=== PATIENT | male | born 1965 | race African-American/Black ===

== ENCOUNTER 2019-07-03 13:35 | Inpatient (IN) | payer OTHER ==
[2019-07-03 16:51] VITALS: PULSE 50; BMI 23.8
--- NOTE | 2019-07-03 17:50 | HP ---
CIWA Score - Admission Criteria [facility] Guidelines: Admission for Medically Managed Detox: Requires at least one of the followin. CIWA greater than 12 2. Seizures within the past 24 hours 3. Delirium tremens within the past 24 hours 4. Hallucinations within the past 24 hours 5. Acute intervention needed for co occurring medical disorder 6. Acute intervention needed for co occurring psychiatric disorder 7. Severe withdrawal that cannot be handled at a lower level of care (continued vomiting, continued diarrhea, abnormal vital signs) requiring intravenous medication and/or fluids 8. Admission ROS S - HPI Chief Complaint: Seeking admission to Rehab. Allergies/Adverse Reactions: Allergies Allergy/AdvReac Type Severity Reaction Status Date / Time No Known Allergies Allergy Verified 07/03/19 16:50 History of Present Illness: 53 years old male with a lonh history of cocaine and marijuana dependence is seeking admission to Rehab. Patient has been to previous Rehabilitation at [facility]. He is in a program at [facility] and is on Buprenorphine - naloxone 8-2mg sl film. He reports medical history of BPH and psychiatric history of depression. He is unemployed and lives with his family. His drug screen result was positive for Marijuana, cocaine and BUP. This is his first admission to [facility] Confidential Drug Utilization Report Search Terms: Carlos Valencia, 1965 Search Date: 07/03/2019 05:47:19 PM The Drug Utilization Report below displays all of the controlled substance prescriptions, if any, that your patient has filled in the last twelve months. The information displayed on this report is compiled from pharmacy submissions to the Department, and accurately reflects the information as submitted by the pharmacies. Others' Prescriptions Patient Name: Carlos Valencia Date: 1965 Address: [address] [place] [address] Sex: Male Rx Written Rx Dispensed Drug Quantity Days Supply Prescriber Name 06/30/2019 06/30/2019 buprenorphine-naloxone 8-2 mg sl film 30 15 Hamzah Sharma MD 06/16/2019 06/16/2019 buprenorphine-naloxone 8-2 mg sl film 30 15 Hmazah Sharma MD 06/02/2019 06/02/2019 buprenorphine-naloxone 8-2 mg sl film 30 15 Hamzah Sharma MD 05/19/2019 05/19/2019 buprenorphine-naloxone 8-2 mg sl film 30 15 Hamzah Sharma MD Patient Name: Carlos Valencia Date: 1965 Address: [address] [place] [address] Sex: Male Rx Written Rx Dispensed Drug Quantity Days Supply Prescriber Name 04/15/2019 04/15/2019 buprenorphine-naloxone 8-2 mg sl film 60 30 Mainor Fabian J, MD Exam Limitations: No Limitations - Ebola screening Have you traveled outside of the country in the last 21 days: No Have you had contact with anyone from an Ebola affected area: No Do you have a fever: No - Review of Systems Constitutional: No Symptoms Reported EENT: reports: No Symptoms Reported Respiratory: reports: No Symptoms reported Cardiac: reports: No Symptoms Reported GI: reports: No Symptoms Reported : reports: No Symptoms Reported Musculoskeletal: reports: No Symptoms Reported Integumentary: reports: No Symptoms Reported Neuro: reports: No Symptoms reported Endocrine: reports: No Symptoms Reported Hematology: reports: No Symptoms Reported Psychiatric: reports: No Sypmtoms Reported, Mood/Affect Appropiate, Orientated x3 Other Systems: Reviewed and Negative Patient History - Patient Medical History Hx Anemia: No Hx Asthma: No Hx Chronic Obstructive Pulmonary Disease (COPD): No Hx Cardiac Disorders: No Hx Congestive Heart Failure: No Hx Hypertension: No Hx Hypercholesterolemia: No HX Cerebrovascular Accident: No Hx Seizures: No Hx Dementia: No Hx Diabetes: No Hx Gastrointestinal Disorders: No Hx Liver Disease: No Hx Genitourinary Disorders: Yes (BPH) Hx Sexually Transmitted Disorders: No Hx Renal Disease (ESRD): No Hx Thyroid Disease: No Hx Human Immunodeficiency Virus (HIV): No (Nergative December 2018) Hx Hepatitis C: No Hx Suicide Attempt: No (Denies suicidal ideation at this time) Hx Bipolar Disorder: No Hx Schizophrenia: No - Patient Surgical History Past Surgical History: No - PPD History Previous Implant?: No Documented Results: Negative w/o proof Implanted On Prior [facility] Admission?: No PPD to be Administered?: Yes - Reproductive History Patient is a Female of Child Bearing Age (11 -55 yrs old): No (male) - Smoking Cessation Smoking history: Current every day smoker Have you smoked in the past 12 months: Yes Aproximately how many cigarettes per day: 20 Hx Chewing Tobacco Use: No Initiated information on smoking cessation: Yes 'Breaking Loose' booklet given: 07/03/19 - Substance & Tx. History Hx Alcohol Use: No Hx Substance Use: Yes Substance Use Type: Cocaine, Marijuana, Prescribed Hx Substance Use Treatment: Yes ([facility]) - Substances abused Heroin Other (specify): sniff Frequency: Daily Amount used: 3 bags Age of first use: 16 Date of last use: 11/25/18 Cocaine Substance route: Smoking Frequency: Daily Amount used: $30 Age of first use: 24 Date of last use: 07/01/19 Admission Physical Exam [facility] - Vital Signs Vital Signs: Vital Signs - 24 hr 07/03/19 16:43 Temperature 97.3 F L Pulse Rate 50 L Respiratory 18 Rate Blood Pressure 128/78 - Physical General Appearance: Yes: Within Normal Limits HEENTM: Yes: Within Normal Limits Respiratory: Yes: Lungs Clear, Normal Breath Sounds, No Respiratory Distress Neck: Yes: Within Normal Limits Breast: Yes: Breast Exam Deferred Abdominal: Yes: Normal Bowel Sounds, Soft Genitourinary: Yes: Within Normal Limits Back: Yes: Normal Inspection Musculoskeletal: Yes: Within Normal Limits Neurological: Yes: Alert, Motor Strength 5/5, Normal Mood/Affect, Normal Response Integumentary: Yes: Warm Lymphatic: Yes: Within Normal Limits - Diagnostic (1) Marijuana dependence Current Visit: Yes Status: Chronic (2) Cocaine dependence Current Visit: Yes Status: Chronic Qualifiers: Substance use status: uncomplicated Qualified Code(s): F14.20 - Cocaine dependence, uncomplicated (3) Opioid dependence Current Visit: Yes Status: Chronic Qualifiers: Complication of substance-induced condition: uncomplicated (4) Encounter for monitoring Suboxone maintenance therapy Current Visit: Yes Status: Chronic (5) Nicotine dependence Current Visit: Yes Status: Chronic Qualifiers: Nicotine product type: cigarettes Substance use status: uncomplicated Qualified Code(s): F17.210 - Nicotine dependence, cigarettes, uncomplicated (6) BPH (benign prostatic hyperplasia) Current Visit: Yes Status: Chronic Qualifiers: Lower urinary tract symptom detail: unspecified (7) Depression Current Visit: Yes Status: Chronic Qualifiers: Depression Type: unspecified Qualified Code(s): F32.9 - Major depressive disorder, single episode, unspecified Cleared for Admission [facility] - Detox or Rehab [facility] Level of Care: Observation Bed Claeared for Rehab Admission: Yes Breathalyzer - Breathalyzer Breathalyzer: 0 Urine Drug Screen - Test Device Lot number: [id number] Expiration date: 02/05/21 - Control Is test valid?: Yes - Results Drug screen NEGATIVE: No Urine drug screen results: THC-Marijuana, PRICE-Cocaine, BUP-Suboxone Inpatient Rehab Admission - Rehab Decision to Admit Inpatient rehab admission?: Yes - Initial Determination Are CD services needed?: No Free of communicable disease: Yes Not in need of hospitalization: Yes - Rehab Admission Criteria Previous failed treatment: Yes Poor recovery environment: Yes Comorbidities: Yes Lacks judgement: No Patient is meeting Inpatient Rehab admission criteria:: Yes
[2019-07-03] MEDS ORDERED: MAGNESIUM HYDROX 2400MG/30ML ORAL SUSPENSION 30 ML CUP PO PRN (18:13)
[2019-07-03] MEDS ORDERED: guaiFENesin 200 MG/10 ML 10 ML UNIT-DOSE CUPS PO PRN (18:13)
[2019-07-03] MEDS ORDERED: P-EPHED 60MG/TRIPROLIDI 2.5MG TABLET PO PRN (18:13)
[2019-07-03] MEDS ORDERED: ACETAMINOPHEN 325 MG TABLET (FP) PO PRN (18:13)
[2019-07-03] MEDS ORDERED: LOPERAMIDE HCL 2 MG CAPSULE PO PRN (18:13)
[2019-07-03] MEDS ORDERED: IBUPROFEN 400 MG TABLET (FP) PO PRN (18:13)
[2019-07-03] MEDS ORDERED: MAG HYDROX/AL HYDROX/SIMETH 30 ML UNIT-DOSE CUP PO PRN (18:13)
[2019-07-03] MEDS ORDERED: MAGNESIUM CITRATE 300 ML BOTTLE PO PRN (18:13)
[2019-07-03] MEDS ORDERED: MENTHOL/PHENOL 1 EACH UD MM PRN (18:13)
[2019-07-03] MEDS ORDERED: NICOTINE POLACRILEX 2 MG GUM BC PRN (18:13)
[2019-07-03] MEDS ORDERED: TUBERCULIN PPD 5 TU/0.1ML VIAL ID ONE (21:39)
[2019-07-03] MEDS ORDERED: BUPRENORPHINE/NALOXONE 8 MG/2 MG FILM PACKET SL SCH (22:00)
[2019-07-03] MEDS ORDERED: THIAMINE HCL 100 MG TABLET (FP) PO SCH (22:00)
[2019-07-03] MEDS ORDERED: MELATONIN 5 MG TABLETS PO PRN (22:00)
--- NOTE | 2019-07-03 22:45 | PN ---
S Progress Note Note: Patient's ECG is abnormal. It indicates Sinus rhythm with 2nd degree AV block with 2:1 AV conduction. Also, his heart rate is 40 beats per minute (bradycardia ) and 50 bpm respectively. Patient denies cardiac history or chest pain at this time. Patient is being transferred to ER for further evaluation. Endorsed to Dr. Mora. Vital Signs Temperature 97.3 F L 07/03/19 16:43 Pulse Rate 50 L 07/03/19 16:43 Respiratory Rate 18 07/03/19 16:43 Blood Pressure 128/78 07/03/19 16:43 O2 Sat by Pulse Oximetry (%) Action: Awaiting [facility] transportation to ER
[2019-07-03 22:52] VITALS: BP 148/94; TEMP 97.6
--- NOTE | 2019-07-04 05:50 | HP ---
CHIEF COMPLAINT: PCP: HISTORY OF PRESENT ILLNESS: ER course was notable for: (1) (2) (3) Recent Travel: PAST MEDICAL HISTORY: PAST SURGICAL HISTORY: Social History: Smoking: Alcohol: Drugs: Allergies No Known Allergies Allergy (Verified 07/03/19 23:46) HOME MEDICATIONS: Home Medications Medication Instructions Recorded Buprenorphine/Naloxone [Suboxone 8 mg SL BID 07/03/19 8Mg/2Mg Sl Film -] Tamsulosin HCl [Flomax] 0.4 mg PO DAILY 07/03/19 REVIEW OF SYSTEMS CONSTITUTIONAL: Absent: fever, chills, diaphoresis, generalized weakness, malaise, loss of appetite, weight change HEENT: Absent: rhinorrhea, nasal congestion, throat pain, throat swelling, difficulty swallowing, mouth swelling, ear pain, eye pain, visual changes CARDIOVASCULAR: Absent: chest pain, syncope, palpitations, irregular heart rate, lightheadedness , peripheral edema RESPIRATORY: Absent: cough, shortness of breath, dyspnea with exertion, orthopnea, wheezing, stridor, hemoptysis GASTROINTESTINAL: Absent: abdominal pain, abdominal distension, nausea, vomiting, diarrhea, constipation, melena, hematochezia GENITOURINARY: Absent: dysuria, frequency, urgency, hesitancy, hematuria, flank pain, genital pain MUSCULOSKELETAL: Absent: myalgia, arthralgia, joint swelling, back pain, neck pain SKIN: Absent: rash, itching, pallor HEMATOLOGIC/IMMUNOLOGIC: Absent: easy bleeding, easy bruising, lymphadenopathy, frequent infections ENDOCRINE: Absent: unexplained weight gain, unexplained weight loss, heat intolerance, cold intolerance NEUROLOGIC: Absent: headache, focal weakness or paresthesias, dizziness, unsteady gait, seizure, mental status changes, bladder or bowel incontinence PSYCHIATRIC: Absent: anxiety, depression, suicidal or homicidal ideation, hallucinations. PHYSICAL EXAMINATION Vital Signs - 24 hr 07/03/19 07/03/19 16:43 20:00 Temperature 97.3 F L 97.6 F Pulse Rate 50 L 50 L Respiratory 18 18 Rate Blood Pressure 128/78 148/94 GENERAL: Awake, alert, and fully oriented, in no acute distress. HEAD: Normal with no signs of trauma. EYES: Pupils equal, round and reactive to light, extraocular movements intact, sclera anicteric, conjunctiva clear. No lid lag. EARS, NOSE, THROAT: Ears normal, nares patent, oropharynx clear without exudates. Moist mucous membranes. NECK: Normal range of motion, supple without lymphadenopathy, JVD, or masses. LUNGS: Breath sounds equal, clear to auscultation bilaterally. No wheezes, and no crackles. No accessory muscle use. HEART: Regular rate and rhythm, normal S1 and S2 without murmur, rub or gallop. ABDOMEN: Soft, nontender, not distended, normoactive bowel sounds, no guarding, no rebound, no masses. No hepatomegaly or splenomegaly. MUSCULOSKELETAL: Normal range of motion at all joints. No bony deformities or tenderness. No CVA tenderness. UPPER EXTREMITIES: 2+ pulses, warm, well-perfused. No cyanosis. No clubbing. No peripheral edema. LOWER EXTREMITIES: 2+ pulses, warm, well-perfused. No calf tenderness. No peripheral edema. NEUROLOGICAL: Cranial nerves II-XII intact. Normal speech. Normal gait. PSYCHIATRIC: Cooperative. Good eye contact. Appropriate mood and affect. SKIN: Warm, dry, normal turgor, no rashes or lesions noted, normal capillary refill. ASSESSMENT/PLAN: ATTENDING PHYSICIAN STATEMENT I saw and evaluated the patient. I reviewed the resident's note and discussed the case with the resident. I agree with the resident's findings and plan as documented. SUBJECTIVE: OBJECTIVE: ASSESSMENT AND PLAN:
[2019-07-04] MEDS ORDERED: PRENATAL VITAMINS W/ FOLIC ACID TABLET (FP) PO SCH (10:00)
[2019-07-04] MEDS ORDERED: TAMSULOSIN HCL 0.4 MG CAP PO SCH (10:00)
[2019-07-04] MEDS ORDERED: NICOTINE 21 MG/24 HOURS TOPICAL PATCH TD SCH (10:00)
--- NOTE | 2019-07-04 13:34 | EKG ---
Test Reason : Blood Pressure : / mmHG Vent. Rate : 040 BPM Atrial Rate : 083 BPM P-R Int : 184 ms QRS Dur : 104 ms QT Int : 472 ms P-R-T Axes : 032 -05 030 degrees QTc Int : 384 ms MARKED SINUS BRADYCARDIA NONSPECIFIC INTRAVENTRICULAR CONDUCTION DEFECT MINIMAL VOLTAGE CRITERIA FOR LVH, MAY BE NORMAL VARIANT ABNORMAL ECG NO PREVIOUS ECGS AVAILABLE Confirmed by JOYCE SHUKLA MD ([id number]) on 07/04/2019 1:33:44 PM Referred By: Confirmed By:JOYCE SHUKLA MD
== END 2019-07-03 23:55 | disposition short-term general hospital (02) | DRG 772 ==
LOC: YASAS 13:35 → Y3W 19:05
PROVIDERS: ADMIT Neuromusculoskeletal Medicine & OMM; ATTEND Neuromusculoskeletal Medicine & OMM
PROC: HZ42ZZZ Group Counseling for Substance Abuse Treatment, Cognitive-Behavioral (ICD-10-PCS; principal; 2019-07-03)
DX: F11.20 Opioid dependence, uncomplicated (principal); F14.20 Cocaine dependence, uncomplicated; F12.20 Cannabis dependence, uncomplicated; F17.210 Nicotine dependence, cigarettes, uncomplicated; F32.9 Major depressive disorder, single episode, unspecified; N40.0 Benign prostatic hyperplasia without lower urinary tract symptoms; R94.31 Abnormal electrocardiogram [ECG] [EKG]; Z51.81 Encounter for therapeutic drug level monitoring
CPT/HCPCS: 93005; 93010

== ENCOUNTER 2019-07-03 23:32 | Inpatient (IN) | payer OTHER ==
[2019-07-03 23:46] VITALS: BMI 23.9
--- NOTE | 2019-07-04 01:17 | PDOC ---
History of Present Illness - General Chief Complaint: Revisit,Radiology Variance Stated Complaint: ABNORMAL EKG Time Seen by Provider: 07/04/19 00:50 - History of Present Illness Initial Comments: 07/04/19 04:02 HPI: 53 y/o M with hx of BPH and polysubstance abuse [facility] concerning for type 2 av block. On arrival, patient is bradycardic with HR 53. On further history, patient reports intermittent chest pain on exertion in his left chest with radiation to the left scapula. In addition to the chest pain, he reports SOB, palpitations, diaphoresis, and QUIGLEY. He denies abd pain, n/v, fever, chills. He hasnt attempted any meds or seen a doc. His last cardiac workup was over a year ago when he was incarcerated. He denies any FH of cardiac disease. PMHx: as noted above ROS: as noted SHx: 3/4 ppd tobacco use; no alcohol use; daily cocaine use last used 3 days ago , daily MJ use, heroine last used 1 year ago now on suboxone Allergies: NKDA ROS: GENERAL/CONSTITUTIONAL: No fever or chills. No weakness. HEAD, EYES, EARS, NOSE AND THROAT: No change in vision. No ear pain or discharge. No sore throat. CARDIOVASCULAR: +chest pain, shortness of breath RESPIRATORY: No cough, wheezing, or hemoptysis. GASTROINTESTINAL: No nausea, vomiting, diarrhea or constipation. GENITOURINARY: No dysuria, frequency, or change in urination. MUSCULOSKELETAL: No joint or muscle swelling or pain. No neck or back pain. SKIN: No rash NEUROLOGIC: +headache; no vertigo, loss of consciousness, or change in strength/ sensation. ENDOCRINE: No increased thirst. No abnormal weight change HEMATOLOGIC/LYMPHATIC: No anemia, easy bleeding, or history of blood clots. ALLERGIC/IMMUNOLOGIC: No hives or skin allergy. PE: GENERAL: Awake, alert, and fully oriented, no acute distress HEAD: No signs of trauma, normocephalic, atraumatic EYES: EOMI, sclera anicteric, conjunctiva clear ENT: Auricles normal inspection, hearing grossly normal, nares patent, oropharynx clear without exudates. Moist mucosa NECK: Normal ROM, no lymphadenopathy LUNGS: No increased work of breathing, symmetrical chest rise, clear to auscultation bilaterally, no wheezes, crackles or rhonchi HEART: bradycardic and regular rhythm, normal S1 and S2, no murmur, peripheral pulses 2+ and equal bilaterally. ABDOMEN: Soft, nondistended, nontender, normoactive bowel sounds. No guarding, no rebound. No masses. No CVAT MUSCULOSKELETAL: Normal inspection, FROM NEUROLOGICAL: Cranial nerves II through XII grossly intact. Normal speech, normal gait, no focal sensorimotor deficits SKIN: Warm, Dry, normal turgor, no rashes or lesions noted Past History - Past Medical History Allergies/Adverse Reactions: Allergies Allergy/AdvReac Type Severity Reaction Status Date / Time No Known Allergies Allergy Verified 07/03/19 23:46 Home Medications: Ambulatory Orders Buprenorphine/Naloxone [Suboxone 8Mg/2Mg Sl Film -] 8 mg SL BID 07/03/19 Tamsulosin HCl [Flomax] 0.4 mg PO DAILY 07/03/19 Anemia: No Asthma: No Cardiac Disorders: No CVA: No COPD: No CHF: No Dementia: No Diabetes: No GI Disorders: No Disorders: Yes (BPH) HTN: No Hypercholesterolemia: No Kidney Stones: No Liver Disease: No Psychiatric Problems: Yes (weed/suboxone abuse) Seizures: No Thyroid Disease: No - Surgical History Abdominal Surgery: No Appendectomy: No Cardiac Surgery: No Cholecystectomy: No Lung Surgery: No Neurologic Surgery: No Orthopedic Surgery: No - Reproductive History Testicular Surgery: No - Psycho Social/Smoking Cessation Hx Smoking History: Current every day smoker Have you smoked in the past 12 months: Yes Number of Cigarettes Smoked Daily: 20 Information on smoking cessation initiated: No 'Breaking Loose' booklet given: 07/03/19 Hx Alcohol Use: No Drug/Substance Use Hx: No Substance Use Type: Cocaine, Marijuana, Prescribed Hx Substance Use Treatment: Yes ([facility]) *Physical Exam - Vital Signs Last Vital Signs Temp Pulse Resp BP Pulse Ox 97.9 F 53 L 16 144/75 100 07/03/19 23:42 07/03/19 23:42 07/03/19 23:42 07/03/19 23:42 07/03/19 23:42 ED Treatment Course - LABORATORY CBC & Chemistry Diagram: 07/04/19 01:30 07/04/19 01:30 Medical Decision Making - Medical Decision Making 07/04/19 04:48 53 y/o M with hx of BPH and polysubstance abuse presenting from [facility] program for abnormal EKG concerning for type 2 av block. Further hx yields intermittent exertional chest pain associated with SOB, palpitations, diaphoresis, QUIGLEY. HR 53 on arrival. PE unremarkable. DDx includes ACS, arrhythmia. Will workup for ACS -cbc, cmp, trop, bnp, ekg, cxr, asa -will admit for acs ruleout 07/04/19 04:50 EKG: sinus keith, borderline elongated DE interval, no aime/d labs wnl cxr without acute processes admitted to tele obs unjder dr lauren Discharge - Discharge Information Problems reviewed: Yes Clinical Impression/Diagnosis: Bradycardia, SOB (shortness of breath) Chest pain Qualifiers: Chest pain type: unspecified Qualified Code(s): R07.9 - Chest pain, unspecified Condition: Stable - Admission Yes - Follow up/Referral - Patient Discharge Instructions - Post Discharge Activity
[2019-07-04] MEDS ORDERED: ASPIRIN 81 MG CHEWABLE TABLETS PO ONE (01:29)
[2019-07-04 01:43] LABS: BASO % 1.3 % (0-2.0); EOS % 4.5 % (0-4.5); HEMATOCRIT 36.2 % (35.4-49); HEMOGLOBIN 11.8 GM/dL (11.7-16.9); MCH 29.8 pg (25.7-33.7); MCHC 32.6 g/dl (32.0-35.9); MEAN CELL VOLUME 91.3 fl (80-96); MEAN PLT VOLUME 9.9 fl (7.5-11.1); MONO % 11.2 % (3.8-10.2); PLATELET COUNT 129 K/MM3 (134-434); RBC 3.97 M/mm3 (4.00-5.60); RDW 16.1 % (11.9-15.9); WHITE BLOOD COUNT 4.3 K/mm3 (4.0-10.0)
--- NOTE | 2019-07-04 01:51 | PDOC ---
Documentation entered by Tila Taylor SCRIBE, acting as scribe for Dawna Fallon DO. Dawna Fallon DO: This documentation has been prepared by the [email or web address], Tila Taylor SCRIBE, under my direction and personally reviewed by me in its entirety. I confirm that the documentation accurately reflects all work, treatment, procedures, and medical decision making performed by me. Attending Attestation - Resident Resident Name: BrandonBilllinda - ED Attending Attestation I have performed the following: I have examined & evaluated the patient, The case was reviewed & discussed with the resident, I agree w/resident's findings & plan, Exceptions are as noted - HPI HPI: 07/04/19 01:32 53yo male with hx of bph and poss htn, hx of suboxone use and cocaine/marijuana use presents from [facility] for eval of intermittent episodes of cp. Pt had an abnl ekg at [facility]. Pt states his last cocaine use was sunday. states he uses cocaine daily. Pt states the cp is sometimes exertional and assoc with diaphoresis and sob. Pt denies n/v. No abd pain. No other complaints. Pt is currently cp free. No pleuritic component. - Physicial Exam PE: 07/04/19 01:38 Gen: aaox3, nad heart: +s1s2 keith lungs: cta b/l abd: soft, nt/nd +bs ext: no c/c/e - Medical Decision Making 07/04/19 01:48 a/p: 53yo male with hx of cocaine use and on suboxone with intermittent cp/sob/ diaphoresis despite cocaine use -cp can be assoc with cocaine and also can be assoc with exertion -pt denies cp at this time, but states he had cp earlier -last cocaine use was sunday -concern for acs given symptoms and cocaine use -will send labs, ekg, cxr -per [facility] - pt with abnl ekg concerning for 2nd degree av block -ekg here is borderline 1st degree av block and bradycardia -will give asa -pt will need obs for cp eval 07/04/19 02:04 labs pending pt signed out to the night team pending labs and obs placement Heart Score/ECG Review - ECG Intrepretation Comment:: 07/04/19 02:04 sinus keith at 48, nl axis, nl interval, lvh, no acute st/t wave findings
[2019-07-04] MEDS ORDERED: ASPIRIN 81 MG CHEWABLE TABLETS ONE (01:56)
[2019-07-04 02:13] LABS: ALBUMIN 3.4 g/dl (3.4-5.0); ALK PHOS 61 U/L (45-117); ANION GAP 2 MMOL/L (8-16); BILIRUBIN,TOTAL 0.2 mg/dL (0.2-1); BLOOD UREA NITROGEN 15.8 mg/dL (7-18); CALCIUM 8.5 mg/dL (8.5-10.1); CHLORIDE 110 mmol/L (98-107); CO2 32 mmol/L (21-32); CREATININE 0.9 mg/dL (0.55-1.3); GLUCOSE,RANDOM 91 mg/dL (74-106); MAGNESIUM 2.5 mg/dL (1.8-2.4); N-TERMINAL BNP 61.1 pg/ml (5-125); POTASSIUM 4.2 mmol/L (3.5-5.1); SGOT/AST 15 U/L (15-37); SGPT/ALT 15 U/L (13-61); SODIUM 143 mmol/L (136-145); TOT PROT 6.5 g/dl (6.4-8.2)
--- NOTE | 2019-07-04 05:44 | PN ---
Teaching Attending Note Name of Resident: Carlos Best ATTENDING PHYSICIAN STATEMENT I saw and evaluated the patient. I reviewed the resident's note and discussed the case with the resident. I agree with the resident's findings and plan as documented. SUBJECTIVE: Patient is a 53 year old man with a PMH of Tobacco use, BPH and Polysubstance abuse (cocaine, heroin, marijuana) presenting from [facility] program for abnormal EKG concerning for type 2 AV block. On arrival, patient is bradycardic with HR 53 but did not come with the EKG from [facility]. On further history, patient reports intermittent chest pain on exertion in his left chest with radiation to the left scapula. In addition to the chest pain, he reports SOB, palpitations, diaphoresis, and headache. He denies abdominal pain, nausea, vomiting, fever or chills. His last cardiac workup was over a year ago when he was incarcerated. He denies any FH of premature CAD. Denies alcohol abuse. OBJECTIVE: Alert Vital Signs Period Temp Pulse Resp BP Sys/Pollard Pulse Ox Last 24 Hr 97.9 F 53 16 144/75 100 HEENT: No Jaundice, eye redness or discharge, PERRLA, EOMI. Normocephalic, atraumatic. External ears are normal and hearing is grossly intact. No nasal discharge. Neck: Supple, nontender. No palpable adenopathy or thyromegaly. No JVD Chest: Good effort. Clear to auscultation and percussion. Heart: Regular. No S3, rub or murmur Abdomen: Not distended, soft, nontender and no HSM. No rebound or guarding. Normal bowel sounds. Ext: Peripheral pulses intact. No leg edema. Skin: Warm and dry. No petechiae, rash or ecchymosis. Neuro: Alert. Oriented x3. CN 2-12 grossly intact. Sensation grossly intact in all four extremities and DTR are symmetric. Psych: Appropriate mood and affect. Good insight. Home Medications Medication Instructions Recorded Buprenorphine/Naloxone [Suboxone 8 mg SL BID 07/03/19 8Mg/2Mg Sl Film -] Tamsulosin HCl [Flomax] 0.4 mg PO DAILY 07/03/19 Abnormal Lab Results 07/04/19 07/04/19 01:30 01:30 RBC 3.97 L RDW 16.1 H Plt Count 129 L Absolute Neuts (auto) 1.4 L Neutrophils % 32.0 L Lymphocytes % 51.0 H Monocytes % 11.2 H Chloride 110 H Anion Gap 2 L Magnesium 2.5 H ASSESSMENT AND PLAN: 1. Chest pain - Has risk factors for ACS. EKG shows sinus bradycardia with rate of [address]-T wave changes. No acute abnormality on CXR. Will admit to telemetry to rule out ACS, get ECHO, fasting lipids, TSH and consult cardiology. Will attempt to retrieve his EKG from [facility] during the day. Low platelets is unexplained - will monitor daily. Will continue comprehensive care for all of patients comorbid conditions. 2. Tobacco Use Counseled on risks associated with tobacco use. We will provide patient all the necessary assistance to facilitate smoking cessation and prescribe Nicotine patch. 3. Polysubstance abuse - Monitor closely for drug withdrawal. Do neurochecks. Implement seizure and fall precautions. Counseled patient about abstaining from illicit drug use. Will consult airport operations specialist and refer to drug detox upon discharge. 4. DVT prophylaxis - Lovenox 40 mg SQ q 24 hours. 5. Advance directives - Full code
--- NOTE | 2019-07-04 05:50 | HP ---
CHIEF COMPLAINT: chest pain HISTORY OF PRESENT ILLNESS: Pt. is a 53 y.o. M w/ PMHx. of Polysubstance use ( Cocaine, Marijuana, Heroin) who present after recent admission to [facility] for rehab for intermittent chest pain and reportedly concerning EKG for 2nd degree AV block. EKG was not sent over with Pt. to ED and no documentation in online chart. Pt. endorses 3/10 intermittent chest pain that happens at rest but also when he stands up. He describes the pains as muscle aches. Pt. states that he also became diaphoretic at that time and did feel palpitations. Pt. states he last used Heroin over a year ago because he was in between detox/rehab facilities and was unable to get suboxone. Pt. states he smokes marijuana daily and usually sprinkles some cocaine in the joint. Pt. states he last used cocaine 3 days ago. Pt. denies any current symptoms or complaints and states " he feels like he doesn't need to be here." ER course was notable for: (1)EKG, CBC, CXR (2)Trop (3) Recent Travel: NO PAST MEDICAL HISTORY: As above PAST SURGICAL HISTORY: Denies Social History: Smokin/4 PPD Alcohol: Denies Drugs: As above Allergies No Known Allergies Allergy (Verified 07/03/19 23:46) HOME MEDICATIONS: Home Medications Medication Instructions Recorded Buprenorphine/Naloxone [Suboxone 8 mg SL BID 07/03/19 8Mg/2Mg Sl Film -] Tamsulosin HCl [Flomax] 0.4 mg PO DAILY 07/03/19 REVIEW OF SYSTEMS As above PHYSICAL EXAMINATION Vital Signs - 24 hr 07/03/19 23:42 Temperature 97.9 F Pulse Rate 53 L Respiratory 16 Rate Blood Pressure 144/75 O2 Sat by Pulse 100 Oximetry (%) A&O x 3, no acute distress MMM, poor dentition CTAB nml S1, S2, no murmurs appreciated non tender abdomen, soft, BS+ no calf tenderness, no edema, warm well perfused Laboratory Results - last 24 hr 07/04/19 07/04/19 01:30 01:30 WBC 4.3 RBC 3.97 L Hgb 11.8 Hct 36.2 MCV 91.3 MCH 29.8 MCHC 32.6 RDW 16.1 H Plt Count 129 L MPV 9.9 Absolute Neuts (auto) 1.4 L Neutrophils % 32.0 L Lymphocytes % 51.0 H Monocytes % 11.2 H Eosinophils % 4.5 Basophils % 1.3 Nucleated RBC % 0 Sodium 143 Potassium 4.2 Chloride 110 H Carbon Dioxide 32 Anion Gap 2 L BUN 15.8 Creatinine 0.9 Est GFR (CKD-EPI)AfAm 111.83 Est GFR (CKD-EPI)NonAf 96.49 Random Glucose 91 Calcium 8.5 Magnesium 2.5 H Total Bilirubin 0.2 AST 15 ALT 15 Alkaline Phosphatase 61 Creatine Kinase 158 Creatine Kinase Index 0.8 CK-MB (CK-2) 1.4 Troponin I < 0.02 B-Natriuretic Peptide 61.1 Total Protein 6.5 Albumin 3.4 ASSESSMENT/PLAN: Pt. is a 53 y.o. M w/ PMHx. of Polysubstance use (Cocaine, Marijuana, Heroin) who present after recent admission to [facility] for rehab for intermittent chest pain and reportedly concerning EKG for 2nd degree AV block. #R/o ACS Trop Negative, f/u Rpt. Suggest getting EKG from [facility] Repeat EKG unremarkable except for asymptomatic bradycardia, likely 2/2 chronic suboxone use and potentially upregulated parasympathetic response (studies show upregulated Mu-receptor with chronic cocaine use) which will be exacerbated in the absence of cocaine. f/u Echo #Low anion gap A likely 2/2 to lab error (most common cause) f/u lipid panel as this is the most likely alternate cause #Polysubstance Abuse c/w Suboxone #BPH c/w Flomax #FEN no IVF, encourage PO intake monitor electrolytes and replete as needed Normal Diet #DVT Ppx. SCDs Visit type - Emergency Visit Emergency Visit: Yes ED Registration Date: 07/04/19 Care time: The patient presented to the Emergency Department on the above date and was hospitalized for further evaluation of their emergent condition. - New Patient This patient is new to me today: Yes Date on this admission: 07/04/19 - Critical Care Critical Care patient: No ATTENDING PHYSICIAN STATEMENT I saw and evaluated the patient. I reviewed the resident's note and discussed the case with the resident. I agree with the resident's findings and plan as documented. SUBJECTIVE: OBJECTIVE: ASSESSMENT AND PLAN:
--- NOTE | 2019-07-04 10:34 | CON.CARD ---
Consult Consult Specialty:: Cardiology Referred by:: Hospitalist Medicine Reason for Consultation:: Asymptomatic bradycardia - History of Present Illness Chief Complaint: Chronic HALL History of Present Illness: Patient is a 53 year old man with a PMH of Tobacco use, BPH and Polysubstance abuse (cocaine, heroin, marijuana) presenting from [facility] program for abnormal EKG concerning for type 2 AV block. On arrival, patient is bradycardic with HR 53 but did not come with the EKG from [facility]. Patient reports SOB with extertion chronically, denies chest pain to me, but reported to others, also denies palpitations, near or true syncope, orthopnea, PND or LE edema. - History Source History Provided By: Patient Limitations to Obtaining History: No Limitations - Alcohol/Substance Use Hx Alcohol Use: No - Smoking History Smoking history: Current every day smoker Have you smoked in the past 12 months: Yes Aproximately how many cigarettes per day: 20 Home Medications - Allergies Allergies/Adverse Reactions: Allergies Allergy/AdvReac Type Severity Reaction Status Date / Time No Known Allergies Allergy Verified 07/03/19 23:46 - Home Medications Home Medications: Ambulatory Orders Buprenorphine/Naloxone [Suboxone 8Mg/2Mg Sl Film -] 8 mg SL BID 07/03/19 Tamsulosin HCl [Flomax] 0.4 mg PO DAILY 07/03/19 Review of Systems - Review of Systems Respiratory: reports: SOB on Exertion Vital Signs: Vital Signs Temperature 97.9 F 07/03/19 23:42 Pulse Rate 57 L 07/04/19 06:48 Respiratory Rate 16 07/04/19 06:48 Blood Pressure 153/79 07/04/19 06:48 O2 Sat by Pulse Oximetry (%) 97 07/04/19 06:48 Constitutional: Yes: No Distress, Calm, Thin Neck: Yes: Supple Respiratory: Yes: Regular, CTA Bilaterally Gastrointestinal: Yes: Normal Bowel Sounds, Soft Cardiovascular: Yes: Bradycardia JVD: No Carotid Bruit: No Heart Sounds: Yes: S1, S2 Edema: No - Other Data Labs, Other Data: CBC, BMP 07/04/19 01:30 07/04/19 01:30 Troponin, BNP 07/04/19 01:30 Troponin I < 0.02 B-Natriuretic Peptide 61.1 Troponin, BNP 07/04/19 01:30 Troponin I < 0.02 B-Natriuretic Peptide 61.1 SB @ 48 LVH Ejection Fraction %: LVEF > or = 40 % Imaging - Results Chest X-ray: Report Reviewed (NAD) Problem List - Problems (1) Bradycardia Code(s): R00.1 - BRADYCARDIA, UNSPECIFIED (2) Chest pain Code(s): R07.9 - CHEST PAIN, UNSPECIFIED Qualifiers: Chest pain type: unspecified Qualified Code(s): R07.9 - Chest pain, unspecified (3) SOB (shortness of breath) Code(s): R06.02 - SHORTNESS OF BREATH (4) Cocaine dependence Code(s): F14.20 - COCAINE DEPENDENCE, UNCOMPLICATED Qualifiers: Substance use status: uncomplicated Qualified Code(s): F14.20 - Cocaine dependence, uncomplicated (5) Marijuana dependence Code(s): F12.20 - CANNABIS DEPENDENCE, UNCOMPLICATED (6) Nicotine dependence Code(s): F17.200 - NICOTINE DEPENDENCE, UNSPECIFIED, UNCOMPLICATED Qualifiers: Nicotine product type: cigarettes Substance use status: uncomplicated Qualified Code(s): F17.210 - Nicotine dependence, cigarettes, uncomplicated (7) Opioid dependence Code(s): F11.20 - OPIOID DEPENDENCE, UNCOMPLICATED Qualifiers: Complication of substance-induced condition: uncomplicated Assessment/Plan 07/04/2019 Echo: Normal LV and RV size and fxn 55-60%, mild LAE, mild MR, TR, borderline MVP 1. HALL with chronic tobacco use 2. Chest pain, ruling out for KS, possible MVP syndrome 3. Polysubstance abuse 4. Asymptomatic sinus bradycardia 5. HTN suspect P:1. Rule out KS, echocardiogram reviewed 2. Telemetry monitoring to r/o sig AV block or pause 3. Given asymptomatic nature, may d/c after ruled out for KS back to [facility] 4. Thank you for consultative opportunity
--- NOTE | 2019-07-04 11:00 | ECHO ---
Name: JOSE GARCIA Exam:Adult Echocardiogram Study Date: 07/04/2019 09:19 AM Age: 53 yrs Reason For Study: r/o acs Height: 70 in Weight: 167 lb BSA: 1.9 m2 MMode/2D Measurements & Calculations IVSd: 1.2 cm Ao root diam: 3.2 cm LVIDd: 5.3 cm LA dimension: 3.9 cm LVIDs: 3.0 cm LVPWd: 1.1 cm EDV(Teich): 138.2 ml LVOT diam: 2.0 cm ESV(Teich): 33.8 ml LAV (MOD-bp): 88.5 ml Doppler Measurements & Calculations MV E max mac: 82.0 cm/sec Ao V2 max: 149.3 cm/sec MV A max mac: 57.2 cm/sec Ao max P.9 mmHg MV E/A: 1.4 MV dec time: 0.18 sec WILSON(V,D): 2.6 cm2 LV V1 max P.5 mmHg MR max mac: 504.4 cm/sec LV V1 max: 127.6 cm/sec MR max P.4 mmHg TR max mac: 203.6 cm/sec PA V2 max: 90.9 cm/sec TR max P.6 mmHg PA max P.3 mmHg Med Peak E' Mac: 9.7 cm/sec PI Vmax: 172.4 cm/sec Med E/e': 8.5 Lat Peak E' Mac: 12.6 cm/sec Lat E/e': 6.5 Left Ventricle Left ventricular systolic function is normal. Ejection Fraction = 55-60%. Left Ventricular Filling pa ttern is normal for age. Right Ventricle The right ventricle is normal in size and function. Atria The left atrium is mildly dilated. Mitral Valve There is borderline mitral valve prolapse. There is no mitral valve stenosis. There is mild mitral regurgitation. Tricuspid Valve The tricuspid valve is normal in structure and function. There is mild tricuspid regurgitation. Right ventricular systolic pressure is normal. Aortic Valve The aortic valve is trileaflet. No hemodynamically significant valvular aortic stenosis. No aortic regurgitation is present. Pulmonic Valve The pulmonic valve is not well seen, but is grossly normal. There is no pulmonic valvular stenosis. Great Vessels The aortic root is normal size. Pericardium/Pleura There is no pericardial effusion. Interpretation Summary Left ventricular systolic function is normal. Ejection Fraction = 55-60%. The right ventricle is normal in size and function. The left atrium is mildly dilated. There is borderline mitral valve prolapse. There is mild mitral regurgitation. There is mild tricuspid regurgitation. Right ventricular systolic pressure is normal. There is no pericardial effusion. MD Guerra *Ed 07/04/2019 10:59 AM
[2019-07-04 11:31] LABS: HEMATOCRIT 37.5 % (35.4-49); HEMOGLOBIN 12.4 GM/dL (11.7-16.9); MCH 30.1 pg (25.7-33.7); MEAN CELL VOLUME 91.2 fl (80-96); PLATELET COUNT 133 K/MM3 (134-434); RBC 4.12 M/mm3 (4.00-5.60); RDW 15.9 % (11.9-15.9)
[2019-07-04 11:42] LABS: INR 1.05 (0.83-1.09); PROTHROMBIN TIME (PATIENT) 12.4 SEC (9.7-13.0)
--- NOTE | 2019-07-04 13:44 | EKG ---
Test Reason : Blood Pressure : / mmHG Vent. Rate : 048 BPM Atrial Rate : 048 BPM P-R Int : 196 ms QRS Dur : 116 ms QT Int : 460 ms P-R-T Axes : 064 -07 020 degrees QTc Int : 410 ms SINUS BRADYCARDIA VOLTAGE CRITERIA FOR LEFT VENTRICULAR HYPERTROPHY NONSPECIFIC ST ABNORMALITY Confirmed by JOYCE SHUKLA MD ([id number]) on 07/04/2019 1:43:47 PM Referred By: Confirmed By:JOYCE SHUKLA MD
[2019-07-04] MEDS ORDERED: BUPRENORPHINE/NALOXONE 8 MG/2 MG FILM PACKET SL ONE (15:00)
--- NOTE | 2019-07-04 16:27 | PN ---
Physical Exam: SUBJECTIVE: Patient seen and examined NAEON. Denies chest pressure, palpitations, SOB. Has regular energy. Last crack usage was 3d(~07/01/19) prior to admission. Last heroin usage was in the summer. OBJECTIVE: Vital Signs Period Temp Pulse Resp BP Sys/Pollard Pulse Ox Last 24 Hr 97.9 F 53-57 16-16 144-153/75-79 97-100 GENERAL: The patient is awake, alert, and fully oriented, in no acute distress. Pleasant HEAD: Normal with no signs of trauma. EYES: extraocular movements intact, sclera anicteric, conjunctiva clear. ENT: Ears normal, nares patent, oropharynx clear without exudates, moist mucous membranes. NECK: Trachea midline, full range of motion, supple. LUNGS: Breath sounds equal, clear to auscultation bilaterally, no wheezes, no crackles, no accessory muscle use. HEART: Karthik rate. Regular rhythm, S1, S2 without murmur, rub or gallop. ABDOMEN: Soft, nontender, nondistended, normoactive bowel sounds, no guarding, no rebound, no hepatosplenomegaly. Small reducible umbilical hernia EXTREMITIES: 2+ pulses, warm, well-perfused, no edema. NEUROLOGICAL: Normal speech, gait not observed. PSYCH: Normal mood, normal affect. SKIN: Warm, dry, normal turgor, no rashes or lesions noted Laboratory Results - last 24 hr 07/04/19 07/04/19 07/04/19 01:30 01:30 11:00 WBC 4.3 4.0 RBC 3.97 L 4.12 Hgb 11.8 12.4 Hct 36.2 37.5 MCV 91.3 91.2 MCH 29.8 30.1 MCHC 32.6 33.0 RDW 16.1 H 15.9 Plt Count 129 L 133 L MPV 9.9 10.0 Absolute Neuts (auto) 1.4 L Neutrophils % 32.0 L Lymphocytes % 51.0 H Monocytes % 11.2 H Eosinophils % 4.5 Basophils % 1.3 Nucleated RBC % 0 PT with INR INR Sodium 143 Potassium 4.2 Chloride 110 H Carbon Dioxide 32 Anion Gap 2 L BUN 15.8 Creatinine 0.9 Est GFR (CKD-EPI)AfAm 111.83 Est GFR (CKD-EPI)NonAf 96.49 Random Glucose 91 Calcium 8.5 Magnesium 2.5 H Total Bilirubin 0.2 AST 15 ALT 15 Alkaline Phosphatase 61 Creatine Kinase 158 Creatine Kinase Index 0.8 CK-MB (CK-2) 1.4 Troponin I < 0.02 B-Natriuretic Peptide 61.1 Total Protein 6.5 Albumin 3.4 07/04/19 11:00 WBC RBC Hgb Hct MCV MCH MCHC RDW Plt Count MPV Absolute Neuts (auto) Neutrophils % Lymphocytes % Monocytes % Eosinophils % Basophils % Nucleated RBC % PT with INR 12.40 INR 1.05 Sodium Potassium Chloride Carbon Dioxide Anion Gap BUN Creatinine Est GFR (CKD-EPI)AfAm Est GFR (CKD-EPI)NonAf Random Glucose Calcium Magnesium Total Bilirubin AST ALT Alkaline Phosphatase Creatine Kinase Creatine Kinase Index CK-MB (CK-2) Troponin I B-Natriuretic Peptide Total Protein Albumin ASSESSMENT/PLAN: 53 y.o. M w/ PMHx. of Polysubstance use (Cocaine, Marijuana, Heroin) who present after recent admission to [facility] for rehab for intermittent chest pain and reportedly concerning EKG for 2nd degree AV block. # r/o ACS --unlikley ischemic cardiac issues > troponin neg x2 > Echo(07/04/19): LVEF 55-60% # asymptomatic bradycardia > [facility] EKG(07/03/19): sinus rhythem w/ 2nd degree AV block with 2:1 AV conduction > Repeat EKG unremarkable, appears bradycardia - Lyme titers --pending - cardio([facility]) consult: --tele monitor --will fu echo #Polysubstance Abuse c/w Suboxone #BPH c/w Flomax #FEN - regular diet #DVT Ppx. - SCDs Visit type - Emergency Visit Emergency Visit: No - New Patient This patient is new to me today: Yes Date on this admission: 07/04/19 - Critical Care Critical Care patient: No ATTENDING PHYSICIAN STATEMENT I saw and evaluated the patient. I reviewed the resident's note and discussed the case with the resident. I agree with the resident's findings and plan as documented. SUBJECTIVE: OBJECTIVE: ASSESSMENT AND PLAN:
--- NOTE | 2019-07-04 18:15 | PN ---
Teaching Attending Note Name of Resident: Mateus Huber ATTENDING PHYSICIAN STATEMENT I saw and evaluated the patient. I reviewed the resident's note and discussed the case with the resident. I agree with the resident's findings and plan as documented. SUBJECTIVE: seen at 10 am . he denied cp or SOB , he denied palpitations at time of interview. he reprots occasional palpitation as he feels his heart racing. he reports exertional SOB but no cp . he still smokes. his last use of heroin was 2 years ago. his last use of cocaine was 3-4 days ago. OBJECTIVE: AND CV: RRR Lungs: CTAB Ext : No edema or erythema. ASSESSMENT AND PLAN: 53 y/o man with h/o tobacco use and polysubstance abuse who presented from [facility] due to suspected abnormal EKG 1- Suspected abnormal EKG: EKG done here showed sinus keith. the EKG which was done at [facility] was obtained, and it actually might show 2nd degree AV block ( mobitz II) . this could be due to the effect of drugs, lyme , or degenerative or ischemic heart disease - will d/w card - cont tele - order lyme serology 2- CP: was reported to Dr. Majano. he denied for us . - trop neg. EKG with no ischemic changes. - further w/u per card 3- h/o substance abuse: - no signs of withdrawal from any substance - when dc'd suzette schultz return to [facility] - cont subaxone 4- DVT Px : add lovenox 5- Nicotine dependence: add nicotine patch
[2019-07-04] MEDS ORDERED: ENOXAPARIN NA (PORCINE) 40 MG/0.4 ML DISP.SYRIN SQ ONE (18:23)
[2019-07-04] MEDS ORDERED: ALBUTEROL SO4 8 GM HFA INHALER IH PRN (18:24)
[2019-07-04] MEDS ORDERED: ENOXAPARIN NA (PORCINE) 40 MG/0.4 ML DISP.SYRIN SQ SCH (18:30)
[2019-07-04] MEDS: ENOXAPARIN NA (PORCINE) 40 MG/0.4 ML DISP.SYRIN SQ SCH (20:30)
[2019-07-04] MEDS: NICOTINE 7 MG/24 HOURS TOPICAL PATCH TD SCH (20:31)
--- NOTE | 2019-07-05 08:21 | PN ---
Progress Note (short form) - Note Progress Note: Chief Complaint: Events noted, notes reviewed, denies any chest pain or dyspnea , sinus bradycardia noted- high vagal tone, review of EKG form [facility] no evidence of 2:1 AV block- sinus bradycardia with a prominent U-wave which was interpreted as 2:1 AV block History of Present Illness: Seen and examined on telemetry. Events noted, notes reviewed, denies any chest pain or dyspnea, sinus bradycardia noted- high vagal tone, review of EKG form [facility] no evidence of 2:1 AV block- sinus bradycardia with a prominent U- wave which was interpreted as 2:1 AV block - Current Medication List Current Medications Albuterol Sulfate (Ventolin Hfa Inhaler -) 2 puff IH Q4H PRN PRN Reason: SHORT OF BREATH/WHEEZING Enoxaparin Sodium (Lovenox -) 40 mg SQ DAILY [facility] Last Admin: 07/05/19 09:18 Dose: 40 mg Nicotine (Nicoderm Patch -) 7 mg TD DAILY [facility] Last Admin: 07/05/19 09:18 Dose: Not Given Review of Systems - Review of Systems Constitutional: no symptoms reported Respiratory: denies: Cough or Sputum Production Cardiovascular: as noted above Gastrointestinal: denies Nausea, Vomiting, Diarrhea, Constipation or Abdominal Pain Genitourinary: no symptoms reported Musculoskeletal: no symptoms reported Endocrine: no symptoms reported - Objective Vital Signs: Last Vital Signs Temp Pulse Resp BP Pulse Ox 97.9 F 60 18 129/94 98 07/05/19 08:56 07/05/19 08:56 07/05/19 09:00 07/05/19 08:56 07/05/19 09:00 Intake & Output 07/02/19 07/03/19 07/04/19 07/05/19 23:59 23:59 23:59 23:59 Intake Total 400 10 Balance 400 10 Weight 167 lb 167 lb Neck: Supple Negative JVD No Bruit Cardiovascular: S1 S2 Regular Rate and Rhythm No Murmurs Respiratory: Diminished Breath Sounds at the Bases Gastrointestinal: Soft Benign Normal Bowel Sounds Extremities: Negative Edema Labs: Troponin, BNP 07/04/19 07/05/19 16:00 08:05 Troponin I < 0.02 Cancelled CBC, BMP 07/05/19 08:05 07/05/19 08:05 Hepatic Panel Total Bilirubin 0.2 mg/dL (0.2-1) 07/04/19 01:30 AST 15 U/L (15-37) 07/04/19 01:30 ALT 15 U/L (13-61) 07/04/19 01:30 Alkaline Phosphatase 61 U/L (45-117) 07/04/19 01:30 Albumin 3.4 g/dl (3.4-5.0) 07/04/19 01:30 INR, PTT INR 1.05 (0.83-1.09) 07/04/19 11:00 Assessment/Plan ASSESSMENT: 1. Asymptomatic sinus bradycardia with no evidence of 2:1 AV block, related to high vagal tone 2. Dyspnea etiology to be determined, outpatient evaluation 3. Chest pain syndrome with no evidence of ACS, patient has risk factors for CAD - to be excluded, outpatient evaluation 4. HTN, is a suspect 5. Poly-substance abuse including Cocaine and Marijuana PLAN: 1. No additional inpatient intervention is indicated at this point from the cardiovascular point of view, additional outpatient evaluation is recommended for the above noted dyspnea and chest pain syndrome including 2. MPI study 3. Counseled substance abuse cessation and abstinence 4. Counseled smoking cessation and abstinence Sangeetha Gonzalez MD
[2019-07-05] MEDS ORDERED: BUPRENORPHINE/NALOXONE 8 MG/2 MG FILM PACKET SL ONE (08:25)
[2019-07-05 08:32] LABS: HEMATOCRIT 38.3 % (35.4-49); HEMOGLOBIN 12.7 GM/dL (11.7-16.9); MCHC 33.2 g/dl (32.0-35.9); MEAN CELL VOLUME 90.6 fl (80-96); MEAN PLT VOLUME 9.8 fl (7.5-11.1); PLATELET COUNT 138 K/MM3 (134-434); RBC 4.23 M/mm3 (4.00-5.60); RDW 15.8 % (11.9-15.9); WHITE BLOOD COUNT 4.5 K/mm3 (4.0-10.0)
[2019-07-05 08:57] VITALS: BP 129/94; PULSE 60; TEMP 97.9
[2019-07-05 09:06] LABS: BLOOD UREA NITROGEN 15.6 mg/dL (7-18); CALCIUM 8.8 mg/dL (8.5-10.1); CREATININE 0.9 mg/dL (0.55-1.3); MAGNESIUM 2.6 mg/dL (1.8-2.4); PHOSPHOROUS 3.9 mg/dL (2.5-4.9); POTASSIUM 3.9 mmol/L (3.5-5.1)
[2019-07-05] MEDS: ENOXAPARIN NA (PORCINE) 40 MG/0.4 ML DISP.SYRIN SQ SCH (09:18)
[2019-07-05] MEDS: NICOTINE 7 MG/24 HOURS TOPICAL PATCH TD SCH (09:18)
--- NOTE | 2019-07-05 14:15 | PN ---
Teaching Attending Note Name of Resident: Mateus Huber ATTENDING PHYSICIAN STATEMENT I saw and evaluated the patient. I reviewed the resident's note and discussed the case with the resident. I agree with the resident's findings and plan as documented. SUBJECTIVE: No fever or chills. No QUIGLEY . no palpitations, CP or SOB OBJECTIVE: AND CV: RRR Lungs: CTAB Ext : No edema or erythema. ASSESSMENT AND PLAN: 53 y/o man with h/o tobacco use and polysubstance abuse who presented from [facility] due to suspected abnormal EKG 1-Bradycardia: sinus on EKg and tele. EKG form [facility] was reviewed with Dr. Gonzalez, no AV block is seen, prominant U waves were seen. - lyme serology pending . to be folowed by PCP 2- CP: was reported to card. f.u as out p t 3- h/o substance abuse:counseled - no signs of withdrawal from any substance - cont home suboxone. f/u with [facility] - lidocaine patch 4- HLP: lipitor started. 10 yr risk of CAD is 31%. dispo : dc home f/u PCP and card.
--- NOTE | 2019-07-05 14:25 | DS ---
Physical Exam: SUBJECTIVE: Patient seen and examined OBJECTIVE: Vital Signs Period Temp Pulse Resp BP Sys/Pollard Pulse Ox Last 24 Hr 97.7 F-98.5 F 50-60 14-18 126-158/68-107 98-100 PHYSICAL EXAM GENERAL: The patient is awake, alert, and fully oriented, in no acute distress. Pleasant HEAD: Normal with no signs of trauma. EYES: extraocular movements intact, sclera anicteric, conjunctiva clear. ENT: Ears normal, nares patent, oropharynx clear without exudates, moist mucous membranes. NECK: Trachea midline, full range of motion, supple. LUNGS: Breath sounds equal, clear to auscultation bilaterally, no wheezes, no crackles, no accessory muscle use. HEART: Karthik rate. Regular rhythm, S1, S2 without murmur, rub or gallop. ABDOMEN: Soft, nontender, nondistended, normoactive bowel sounds, no guarding, no rebound, no hepatosplenomegaly. Small reducible umbilical hernia, no significant inguinal hernias noted with valsalva EXTREMITIES: 2+ pulses, warm, well-perfused, no edema. NEUROLOGICAL: Normal speech, gait not observed. PSYCH: Normal mood, normal affect. SKIN: Warm, dry, normal turgor, no rashes or lesions noted LABS Laboratory Results - last 24 hr 07/04/19 07/05/19 07/05/19 16:00 08:05 08:05 WBC 4.5 RBC 4.23 Hgb 12.7 Hct 38.3 MCV 90.6 MCH 30.0 MCHC 33.2 RDW 15.8 Plt Count 138 MPV 9.8 Sodium 139 Potassium 3.9 Chloride 106 Carbon Dioxide 29 Anion Gap 3 L BUN 15.6 Creatinine 0.9 Est GFR (CKD-EPI)AfAm 111.83 Est GFR (CKD-EPI)NonAf 96.49 Random Glucose 117 H Calcium 8.8 Phosphorus 3.9 Magnesium 2.6 H Creatine Kinase 176 Cancelled Creatine Kinase Index No Result Required. CK-MB (CK-2) < 1.0 Troponin I < 0.02 Cancelled Triglycerides 273 H Cholesterol 243 H Total LDL Cholesterol 173 H HDL Cholesterol 28 L HOSPITAL COURSE: Date of Admission:07/04/19 Date of Discharge: 07/05/19 53 y.o. M w/ PMHx. of Polysubstance use (Cocaine, Marijuana, Heroin) who present after recent admission to [facility] for rehab for intermittent chest pain and reportedly concerning EKG for 2nd degree AV block. Echo LVEF 55-60% w/ o valvular abnormalities. Troponin neg x2. No notable tele recordings. Cardio consulted and recommended outpatient stress. Statin started for Tcholesterol 243. Stable for d/c home, as [facility] rehab is closed for admissions on weekends Minutes to complete discharge: 37 <Mateus Huber - Last Filed: 07/05/19 16:09> Discharge Summary Problems reviewed: Yes Reason For Visit: SHORTNESS OF BREATH, BRADYCARDIA, CHEST PAIN Current Active Problems Bradycardia (Acute) SOB (shortness of breath) (Chronic) - Home Medications Comprehensive Discharge Medication List: Ambulatory Orders Buprenorphine/Naloxone [Suboxone 8Mg/2Mg Sl Film -] 8 mg SL BID 07/03/19 Atorvastatin Ca [Lipitor] 20 mg PO HS #30 tablet 07/05/19 Nicotine Patch [Nicoderm Patch -] 7 mg TD DAILY #30 patch 07/05/19 Tamsulosin HCl [Flomax] 0.4 mg PO DAILY #30 capsule 07/05/19 <Mateus Huber - Last Filed: 07/05/19 16:09> - Home Medications Comprehensive Discharge Medication List: Ambulatory Orders Buprenorphine/Naloxone [Suboxone 8Mg/2Mg Sl Film -] 8 mg SL BID 07/03/19 Atorvastatin Ca [Lipitor] 20 mg PO HS #30 tablet 07/05/19 Nicotine Patch [Nicoderm Patch -] 7 mg TD DAILY #30 patch 07/05/19 Tamsulosin HCl [Flomax] 0.4 mg PO DAILY #30 capsule 07/05/19 <Elmira Tabares - Last Filed: 07/12/19 11:59> Hospital Course: Of note, the second degree AV block suspected on EKG from [facility] was actualy not an AV block . U waves were prominent and were mistaken for P waves. this was discussed and reviewed with algorithm developer. He just had sinus bradycardia. Condition: Stable - Instructions Diet, Activity, Other Instructions: You were evaluated in the hospital for abnormal EKG findings suggesting an arrhythmia while you were being being seen at [facility]. Your heart rate was lower than normal. Your EKG was repeated and it still showed a slowed heart rate. A algorithm developer evaluated you and determined that there was no intervention that needed to be done. Lab work showed that you have high cholesterol, so a new medication will be prescribed. NEW medications: - atorvastatin[LIPITOR] 20mg, once a day - nicotine patch[NICODERM], 7mg patch once a day. - resume previously prescribed home medications Additional instructions: - please refrain from drugs ( cocaine and cocaine) , alcohol, tobacco as these substances can affect your heart - diet: eat a heart-healthy diet of low sodium, low fat, low sugar, high fiber Please follow up with the physicians below in 1 week: - primary care physician(Dr Matos): to discuss your recent hospitalization - algorithm developer(Dr Majano): to discuss need for further cardiac monitoring, and a stress test on an outpatient basis Please seek immediate medical evaluation if you experience any of the following: - chest pain, prolonged episodes of palpitations, shortness of breath or dizziness - loss of consciousness pending tests: Lyme titers are still pending. Yor primary care doctro has to follow up on those . in a couple days do not smoke with nicotine patch Referrals: Kingsley Matos MD [Non Staff, Medical] - 1 Week Haider Majano MD [Staff Physician] - 2 Weeks Disposition: HOME This patient is new to me today: No Emergency Visit: No Critical Care patient: No - Discharge Referral Referred to [facility] No <Mateus Huber - Last Filed: 07/05/19 16:09> ATTENDING PHYSICIAN STATEMENT I saw and evaluated the patient. I reviewed the resident's note and discussed the case with the resident. I agree with the resident's findings and plan as documented. SUBJECTIVE: OBJECTIVE: ASSESSMENT AND PLAN: <Mateus Huber - Last Filed: 07/05/19 16:09> ATTENDING PHYSICIAN STATEMENT I saw and evaluated the patient. I reviewed the resident's note and discussed the case with the resident. I agree with the resident's findings and plan as documented. SUBJECTIVE: OBJECTIVE: ASSESSMENT AND PLAN: <Elmira Tabares - Last Filed: 07/12/19 11:59>
== END 2019-07-05 15:56 | disposition home or self-care (01) | DRG 201 ==
LOC: JER 23:32 → JERBED 07-04 04:51 → J4W 07-04 18:42
PROVIDERS: ADMIT Internal Medicine; ATTEND Internal Medicine
PROC: HZ2ZZZZ Detoxification Services for Substance Abuse Treatment (ICD-10-PCS; principal; 2019-07-04)
DX: R00.1 Bradycardia, unspecified (principal); F12.20 Cannabis dependence, uncomplicated; F17.210 Nicotine dependence, cigarettes, uncomplicated; F14.20 Cocaine dependence, uncomplicated; F11.20 Opioid dependence, uncomplicated; R07.89 Other chest pain; N40.0 Benign prostatic hyperplasia without lower urinary tract symptoms; R06.02 Shortness of breath
CPT/HCPCS: 36415; 71046-TC-FY; 80048; 80053; 80061; 82550; 82553; 83721; 83735; 83880; 84100; 84484; 85025; 85027; 85610; 86618; 93005; 93010; 93306-TC; 99284-25

== ENCOUNTER 2019-07-08 15:34 | Inpatient (IN) | payer OTHER ==
[2019-07-08 19:15] VITALS: BMI 24.5
--- NOTE | 2019-07-08 22:08 | HP ---
CIWA Score - Admission Criteria [facility] Guidelines: Admission for Medically Managed Detox: Requires at least one of the followin. CIWA greater than 12 2. Seizures within the past 24 hours 3. Delirium tremens within the past 24 hours 4. Hallucinations within the past 24 hours 5. Acute intervention needed for co occurring medical disorder 6. Acute intervention needed for co occurring psychiatric disorder 7. Severe withdrawal that cannot be handled at a lower level of care (continued vomiting, continued diarrhea, abnormal vital signs) requiring intravenous medication and/or fluids 8. Admitting History and Physical - Smoking History Smoking history: Current every day smoker Have you smoked in the past 12 months: Yes Aproximately how many cigarettes per day: 20 - Alcohol/Substance Use Hx Alcohol Use: No Admission ROS S - HPI Chief Complaint: "HERE TO LEARN HOW TO STAY STOPPED." Allergies/Adverse Reactions: Allergies Allergy/AdvReac Type Severity Reaction Status Date / Time No Known Allergies Allergy Verified 07/08/19 18:56 History of Present Illness: 53 yo was admitted to rehab on 07/03 and then sent to [facility] ED for evaluation of bradycardia and 2 degree AV block. Patient was admitted to [facility] and cleared medically on 07/05/ but was unable to be admitted to rehab because it was the weekend. Patient presents today for admission to rehab. Patient [facility] Hospital course, PE, labs, and discharge summary reviewed. Patient w/ stable bradycardia w 2 deg AV Block. Started on Lipitor of elevated cholesterol. SUSAN: 0.0 UTox: + THC/PRICE/BUP Cocaine use last used cocaine on 07/06. Marijuana last used 07/07/19. Nicotine use since age 14. Smokes 15 cig/day. Declines nicotine patch. Opiate use on Suboxone Denies alcohol use. PMHx: Bradycardia w/2 degree AV block; Enlarged prostate, arthritis both knees MHHx: Denies. Denies thoughts of harming self or others. SHx: Domiciled. Unemployed. On parole. Patient Name: Carlos Valencia Date: 1965 Address: [address] [place] [address] Sex: Male Rx Written Rx Dispensed Drug Quantity Days Supply Prescriber Name 06/30/2019 06/30/2019 buprenorphine-naloxone 8-2 mg sl film 30 15 Hamzah Sharma MD 06/16/2019 06/16/2019 buprenorphine-naloxone 8-2 mg sl film 30 15 Hamzah Sharma MD 06/02/2019 06/02/2019 buprenorphine-naloxone 8-2 mg sl film 30 15 Hamzah Sharma MD 05/19/2019 05/19/2019 buprenorphine-naloxone 8-2 mg sl film 30 15 Hamzah Sharma MD Patient Name: Carlos Valencia Date: 1965 Address: [address] [place] [address] Sex: Male Rx Written Rx Dispensed Drug Quantity Days Supply Prescriber Name 04/15/2019 04/15/2019 buprenorphine-naloxone 8-2 mg sl film 60 30 Mainor Fabian J, MD Exam Limitations: No Limitations - Ebola screening Have you traveled outside of the country in the last 21 days: No (N) Have you had contact with anyone from an Ebola affected area: No Have you been sick,other than usual withdrawal symptoms: No Do you have a fever: No - Review of Systems Constitutional: No Symptoms Reported EENT: reports: Blurred Vision, Dental Problems (Tooth ache) Respiratory: reports: SOB with Exertion Cardiac: reports: Other (Bradycardia w/ 2 degree AVB - occ. SOB) GI: reports: No Symptoms Reported : reports: Other (Slow flow) Musculoskeletal: reports: Joint Pain (Simba sharp/achy knee pain. "8" Increases w / walking, climbing stairs, sitting for too long. Improves w/ heating pad.) Integumentary: reports: No Symptoms Reported Neuro: reports: No Symptoms reported Endocrine: reports: No Symptoms Reported Hematology: reports: No Symptoms Reported Psychiatric: reports: Judgement Intact, Mood/Affect Appropiate, Orientated x3 Patient History - Patient Medical History Hx Anemia: No Hx Asthma: No Hx Chronic Obstructive Pulmonary Disease (COPD): No Hx Cancer: No Hx Cardiac Disorders: No Hx Congestive Heart Failure: No Hx Hypertension: No Hx Hypercholesterolemia: No Hx Pacemaker: No HX Cerebrovascular Accident: No Hx Seizures: No Hx Dementia: No Hx Diabetes: No Hx Gastrointestinal Disorders: No Hx Liver Disease: No Hx Genitourinary Disorders: Yes (BPH) Hx Sexually Transmitted Disorders: No Hx Renal Disease (ESRD): No Hx Thyroid Disease: No Hx Human Immunodeficiency Virus (HIV): No Hx Hepatitis C: No Hx Depression: No Hx Suicide Attempt: No (Denies suicidal ideation at this time) Hx Bipolar Disorder: No Hx Schizophrenia: No - Patient Surgical History Past Surgical History: No Hx Neurologic Surgery: No Hx Cataract Extraction: No Hx Cardiac Surgery: No Hx Lung Surgery: No Hx Breast Surgery: No Hx Breast Biopsy: No Hx Abdominal Surgery: No Hx Appendectomy: No Hx Cholecystectomy: No Hx Genitourinary Surgery: No Hx Section: No Hx Orthopedic Surgery: No Hx Hysterectomy: No Anesthesia Reaction: No - PPD History Date: 07/05/19 (Reviewed by RW, SOC[employer]AC[employer] MEMBER) Results: 07/08/19 PPD to be Administered?: No - Smoking Cessation Smoking history: Current every day smoker Have you smoked in the past 12 months: Yes Aproximately how many cigarettes per day: 15 Hx Chewing Tobacco Use: No Initiated information on smoking cessation: Yes 'Breaking Loose' booklet given: 07/08/19 - Substance & Tx. History Hx Alcohol Use: No Hx Substance Use: Yes Substance Use Type: Cocaine, Marijuana, Opiates Hx Substance Use Treatment: Yes (rehab, Currently on Suboxone) - Substances abused Heroin Other (specify): sniff Substance route: Inhalation Frequency: Daily Amount used: 3 bags Age of first use: 16 Date of last use: 11/25/18 Cocaine Substance route: Smoking Frequency: Daily Amount used: $10 Age of first use: 24 Date of last use: 07/08/19 Marijuana/Hashish Substance route: Smoking Frequency: Daily Amount used: $20 Age of first use: 11 Date of last use: 07/08/19 Admission Physical Exam [facility] - Vital Signs Vital Signs: Vital Signs - 24 hr 07/08/19 18:53 Temperature 97.7 F Pulse Rate 59 L Respiratory 18 Rate Blood Pressure 140/79 - Physical General Appearance: Yes: Nourished HEENTM: Yes: EOMI, Hearing grossly Normal, Normal ENT Inspection, Normocephalic , Normal Voice, NOHELIA, Pharynx Normal (Thickened whitish saliva) Respiratory: Yes: Lungs Clear (Pulse Ox = 98 %), Normal Breath Sounds, No Respiratory Distress Neck: Yes: No masses,lesions,Nodules, Supple Breast: Yes: Breast Exam Deferred Cardiology: Yes: Regular Rhythm, S1, S2, Bradycardia (H: 50) Abdominal: Yes: Normal Bowel Sounds, Non Tender, Flat, Soft Genitourinary: Yes: Within Normal Limits Back: Yes: Normal Inspection Musculoskeletal: Yes: full range of Motion, Gait Steady Extremities: Yes: Normal Capillary Refill (Pulses +) Neurological: Yes: senior mechanical design engineer II-XII NML intact, Fully Oriented, Alert, Motor Strength 5/5, Normal Mood/Affect Integumentary: Yes: Normal Color, Dry, Warm Lymphatic: Yes: Within Normal Limits - Diagnostic (1) Knee pain Current Visit: Yes Status: Chronic Qualifiers: Chronicity: chronic Laterality: bilateral Qualified Code(s): M25.561 - Pain in right knee; M25.562 - Pain in left knee; G89.29 - Other chronic pain (2) Opioid dependence on agonist therapy Current Visit: Yes Status: Chronic Comment: On Suboxone (3) BPH (benign prostatic hyperplasia) Current Visit: Yes Status: Chronic Qualifiers: Lower urinary tract symptom presence: symptoms present Lower urinary tract symptom detail: unspecified Qualified Code(s): N40.1 - Benign prostatic hyperplasia with lower urinary tract symptoms (4) Cocaine dependence Current Visit: Yes Status: Chronic Qualifiers: Substance use status: uncomplicated Qualified Code(s): F14.20 - Cocaine dependence, uncomplicated (5) Marijuana dependence Current Visit: Yes Status: Chronic (6) Nicotine dependence Current Visit: Yes Status: Chronic Qualifiers: Nicotine product type: cigarettes Substance use status: uncomplicated Qualified Code(s): F17.210 - Nicotine dependence, cigarettes, uncomplicated (7) Bradycardia Current Visit: Yes Status: Chronic Comment: w/ 2 degree AV Block Cleared for Admission [facility] - Detox or Rehab Claeared for Rehab Admission: Yes Breathalyzer - Breathalyzer Breathalyzer: 0 Urine Drug Screen - Test Device Lot number: [id number] Expiration date: 02/05/21 - Control Is test valid?: Yes - Results Drug screen NEGATIVE: No Urine drug screen results: THC-Marijuana, PRICE-Cocaine, BUP-Suboxone Inpatient Rehab Admission - Rehab Decision to Admit Inpatient rehab admission?: Yes - Initial Determination Are CD services needed?: Yes Free of communicable disease: Yes Not in need of hospitalization: Yes - Rehab Admission Criteria Previous failed treatment: Yes Poor recovery environment: Yes Comorbidities: Yes Lacks judgement: No Patient is meeting Inpatient Rehab admission criteria:: Yes
[2019-07-08] MEDS ORDERED: hydrOXYzine PAMOATE 25 MG CAPSULE (FP) PO PRN (22:31)
[2019-07-08] MEDS ORDERED: guaiFENesin 200 MG/10 ML 10 ML UNIT-DOSE CUPS PO PRN (22:31)
[2019-07-08] MEDS ORDERED: LOPERAMIDE HCL 2 MG CAPSULE PO PRN (22:31)
[2019-07-08] MEDS ORDERED: MENTHOL/PHENOL 1 EACH UD MM PRN (22:31)
[2019-07-08] MEDS ORDERED: P-EPHED 60MG/TRIPROLIDI 2.5MG TABLET PO PRN (22:31)
[2019-07-08] MEDS ORDERED: MAGNESIUM CITRATE 300 ML BOTTLE PO PRN (22:31)
[2019-07-08] MEDS ORDERED: MAG HYDROX/AL HYDROX/SIMETH 30 ML UNIT-DOSE CUP PO PRN (22:31)
[2019-07-08] MEDS ORDERED: IBUPROFEN 400 MG TABLET (FP) PO PRN (22:31)
[2019-07-08] MEDS ORDERED: MAGNESIUM HYDROX 2400MG/30ML ORAL SUSPENSION 30 ML CUP PO PRN (22:31)
[2019-07-08] MEDS ORDERED: NICOTINE POLACRILEX 2 MG GUM BUC PRN (22:31)
[2019-07-08] MEDS ORDERED: BENZOCAINE 20 % GEL TUBE MM PRN (22:37)
[2019-07-08] MEDS: BUPRENORPHINE/NALOXONE 8 MG/2 MG FILM PACKET SL SCH (22:54)
[2019-07-09] MEDS: TAMSULOSIN HCL 0.4 MG CAP PO SCH (09:52)
[2019-07-09] MEDS: PRENATAL VITAMINS W/ FOLIC ACID TABLET (FP) PO SCH (09:52)
[2019-07-09] MEDS: BUPRENORPHINE/NALOXONE 8 MG/2 MG FILM PACKET SL SCH ×2 (09:52→18:42)
[2019-07-09 10:20] LABS: HEMATOCRIT 35.3 % (35.4-49); HEMOGLOBIN 11.6 GM/dL (11.7-16.9); MCH 29.9 pg (25.7-33.7); MCHC 32.9 g/dl (32.0-35.9); MEAN CELL VOLUME 90.7 fl (80-96); MEAN PLT VOLUME 10.6 fl (7.5-11.1); PLATELET COUNT 119 K/MM3 (134-434); RBC 3.89 M/mm3 (4.00-5.60); WHITE BLOOD COUNT 4.5 K/mm3 (4.0-10.0)
[2019-07-09 10:42] LABS: ALBUMIN 3.2 g/dl (3.4-5.0); BILIRUBIN,TOTAL 0.2 mg/dL (0.2-1); BLOOD UREA NITROGEN 13.6 mg/dL (7-18); CALCIUM 8.4 mg/dL (8.5-10.1); POTASSIUM 3.5 mmol/L (3.5-5.1)
[2019-07-09 11:41] LABS: EPI CELLS 0.5 /HPF (0-5/HPF); HYALINE CASTS 3 /lpf (0-8); PH,URINE 7.5 (5.0-8.0); URINE APPEARANCE CLEAR; URINE BACTERIA 2.4 /hpf (NEGATIVE); URINE BILIRUBIN NEGATIVE (NEGATIVE); URINE COLOR YELLOW; URINE GLUCOSE (UA) NEGATIVE (NEGATIVE); URINE KETONE NEGATIVE (NEGATIVE); URINE LEUK ESTERASE NEGATIVE (NEGATIVE); URINE NITRITE NEGATIVE (NEGATIVE); URINE PROTEIN NEGATIVE (NEGATIVE); URINE RBC 9 /hpf (0-4); URINE WBC 3 /hpf (0-5)
--- NOTE | 2019-07-09 18:07 | PN ---
[facility] Progress Note Note: Laboratory Tests 07/09/19 07/09/19 07/09/19 07:40 07:40 07:50 WBC 4.5 RBC 3.89 L Hgb 11.6 L Hct 35.3 L MCV 90.7 MCH 29.9 MCHC 32.9 RDW 16.0 H Plt Count 119 L MPV 10.6 Sodium 142 Potassium 3.5 Chloride 108 H Carbon Dioxide 29 Anion Gap 6 L BUN 13.6 Creatinine 1.0 Est GFR (CKD-EPI)AfAm 98.46 Est GFR (CKD-EPI)NonAf 84.95 Random Glucose 116 H Calcium 8.4 L Total Bilirubin 0.2 AST 14 L ALT 20 Alkaline Phosphatase 69 Total Protein 6.0 L Albumin 3.2 L Urine Color Yellow Urine Appearance Clear Urine pH 7.5 Ur Specific [place] 1.017 Urine Protein Negative Urine Glucose (UA) Negative Urine Ketones Negative Urine Blood Trace Urine Nitrite Negative Urine Bilirubin Negative Urine Urobilinogen 1.0 Ur Leukocyte Esterase Negative Urine WBC (Auto) 3 Urine RBC (Auto) 9 Urine Casts (Auto) 3 U Epithel Cells (Auto) 0.5 Urine Bacteria (Auto) 2.4 Vital Signs (72 hours) 07/08/19 07/09/19 07/09/19 18:53 00:30 03:30 Temperature 97.7 F Pulse Rate 59 L Respiratory 18 18 18 Rate Blood Pressure 140/79 07/09/19 06:53 Temperature 98.2 F Pulse Rate 63 Respiratory 18 Rate Blood Pressure 116/85 Admitted to rehab for cocaine/thc dependence. On Suboxone MAT. Labs reviewed. V/ S stable. Continue rehab.
[2019-07-09] MEDS: ATORVASTATIN CA 20 MG TABLET (FP) PO SCH (21:51)
[2019-07-09] MEDS: THIAMINE HCL 100 MG TABLET (FP) PO SCH (22:09)
[2019-07-10] MEDS: BUPRENORPHINE/NALOXONE 8 MG/2 MG FILM PACKET SL SCH ×2 (06:26→17:41)
[2019-07-10] MEDS: TAMSULOSIN HCL 0.4 MG CAP PO SCH (07:37)
[2019-07-10] MEDS: PRENATAL VITAMINS W/ FOLIC ACID TABLET (FP) PO SCH (09:44)
[2019-07-10] MEDS: ACETAMINOPHEN 325 MG TABLET (FP) PO PRN (09:45)
[2019-07-10] MEDS: ATORVASTATIN CA 20 MG TABLET (FP) PO SCH (21:21)
[2019-07-10] MEDS: THIAMINE HCL 100 MG TABLET (FP) PO SCH (21:22)
[2019-07-11] MEDS: BUPRENORPHINE/NALOXONE 8 MG/2 MG FILM PACKET SL SCH ×2 (06:19→17:55)
[2019-07-11] MEDS: TAMSULOSIN HCL 0.4 MG CAP PO SCH (07:46)
[2019-07-11] MEDS: PRENATAL VITAMINS W/ FOLIC ACID TABLET (FP) PO SCH (10:40)
[2019-07-11] MEDS: THIAMINE HCL 100 MG TABLET (FP) PO SCH (21:26)
[2019-07-11] MEDS: ATORVASTATIN CA 20 MG TABLET (FP) PO SCH (21:26)
[2019-07-12] MEDS: BUPRENORPHINE/NALOXONE 8 MG/2 MG FILM PACKET SL SCH ×2 (06:08→18:26)
[2019-07-12] MEDS: TAMSULOSIN HCL 0.4 MG CAP PO SCH (09:15)
[2019-07-12] MEDS: PRENATAL VITAMINS W/ FOLIC ACID TABLET (FP) PO SCH (10:15)
[2019-07-12] MEDS: ATORVASTATIN CA 20 MG TABLET (FP) PO SCH (22:25)
[2019-07-12] MEDS: THIAMINE HCL 100 MG TABLET (FP) PO SCH (22:25)
[2019-07-13] MEDS: BUPRENORPHINE/NALOXONE 8 MG/2 MG FILM PACKET SL SCH ×2 (06:00→17:47)
[2019-07-13] MEDS: PRENATAL VITAMINS W/ FOLIC ACID TABLET (FP) PO SCH (10:12)
[2019-07-13] MEDS: TAMSULOSIN HCL 0.4 MG CAP PO SCH (10:12)
[2019-07-13] MEDS: ATORVASTATIN CA 20 MG TABLET (FP) PO SCH (21:49)
[2019-07-13] MEDS: THIAMINE HCL 100 MG TABLET (FP) PO SCH (21:49)
[2019-07-14] MEDS: BUPRENORPHINE/NALOXONE 8 MG/2 MG FILM PACKET SL SCH ×2 (06:09→17:09)
[2019-07-14] MEDS: TAMSULOSIN HCL 0.4 MG CAP PO SCH ×2 (09:43→13:12)
[2019-07-14] MEDS: PRENATAL VITAMINS W/ FOLIC ACID TABLET (FP) PO SCH (10:41)
--- NOTE | 2019-07-14 10:59 | PN ---
[facility] Progress Note Note: Patient seen for c/o bilateral knee pain with numbness and tingling to lower legs/feet. States having hx of OA and ambulates with cane. Vital Signs Temperature 98.8 F 07/14/19 06:20 Pulse Rate 65 07/14/19 06:20 Respiratory Rate 18 07/14/19 06:20 Blood Pressure 129/89 07/14/19 06:20 O2 Sat by Pulse Oximetry (%) Laboratory Tests 07/09/19 07/09/19 07/09/19 07:40 07:40 07:50 WBC 4.5 RBC 3.89 L Hgb 11.6 L Hct 35.3 L MCV 90.7 MCH 29.9 MCHC 32.9 RDW 16.0 H Plt Count 119 L MPV 10.6 Sodium 142 Potassium 3.5 Chloride 108 H Carbon Dioxide 29 Anion Gap 6 L BUN 13.6 Creatinine 1.0 Est GFR (CKD-EPI)AfAm 98.46 Est GFR (CKD-EPI)NonAf 84.95 Random Glucose 116 H Calcium 8.4 L Total Bilirubin 0.2 AST 14 L ALT 20 Alkaline Phosphatase 69 Total Protein 6.0 L Albumin 3.2 L Urine Color Yellow Urine Appearance Clear Urine pH 7.5 Ur Specific [place] 1.017 Urine Protein Negative Urine Glucose (UA) Negative Urine Ketones Negative Urine Blood Trace Urine Nitrite Negative Urine Bilirubin Negative Urine Urobilinogen 1.0 Ur Leukocyte Esterase Negative Urine WBC (Auto) 3 Urine RBC (Auto) 9 Urine Casts (Auto) 3 U Epithel Cells (Auto) 0.5 Urine Bacteria (Auto) 2.4 PE: alert and oriented x 3 skin warm and dry in no acute distress ext amb with cane, no visible swelling chonic pain 8/10 to knee joints, +numbness and tingling to lower legs/feet a/p: OA knee pain neuropathies to lower extremities will order mark wrap to knees for support lidocaine patch to both knees gabapentin 100mg tid monitor clinically
[2019-07-14] MEDS: LIDOCAINE PATCH REMOVAL MC SCH (21:27)
[2019-07-14] MEDS: ATORVASTATIN CA 20 MG TABLET (FP) PO SCH (21:27)
[2019-07-14] MEDS: THIAMINE HCL 100 MG TABLET (FP) PO SCH (21:27)
[2019-07-15] MEDS: BUPRENORPHINE/NALOXONE 8 MG/2 MG FILM PACKET SL SCH ×2 (06:07→18:40)
[2019-07-15] MEDS: PRENATAL VITAMINS W/ FOLIC ACID TABLET (FP) PO SCH (10:16)
[2019-07-15] MEDS: LIDOCAINE 5% TOPICAL PATCH TP SCH (10:16)
[2019-07-15] MEDS: TAMSULOSIN HCL 0.4 MG CAP PO SCH (13:10)
[2019-07-15] MEDS: THIAMINE HCL 100 MG TABLET (FP) PO SCH (21:18)
[2019-07-15] MEDS: ATORVASTATIN CA 20 MG TABLET (FP) PO SCH (21:18)
[2019-07-15] MEDS: LIDOCAINE PATCH REMOVAL MC SCH (21:18)
[2019-07-15] MEDS: MELATONIN 5 MG TABLETS PO PRN (21:18)
[2019-07-16] MEDS: BUPRENORPHINE/NALOXONE 8 MG/2 MG FILM PACKET SL SCH ×2 (05:57→18:09)
[2019-07-16] MEDS: PRENATAL VITAMINS W/ FOLIC ACID TABLET (FP) PO SCH (10:50)
[2019-07-16] MEDS: ACETAMINOPHEN 325 MG TABLET (FP) PO PRN (10:50)
[2019-07-16] MEDS: LIDOCAINE 5% TOPICAL PATCH TP SCH (10:50)
[2019-07-16] MEDS: TAMSULOSIN HCL 0.4 MG CAP PO SCH (13:44)
[2019-07-16] MEDS: THIAMINE HCL 100 MG TABLET (FP) PO SCH (21:21)
[2019-07-16] MEDS: ATORVASTATIN CA 20 MG TABLET (FP) PO SCH (21:21)
[2019-07-16] MEDS: LIDOCAINE PATCH REMOVAL MC SCH (21:21)
[2019-07-16] MEDS: MELATONIN 5 MG TABLETS PO PRN (21:21)
[2019-07-17] MEDS: BUPRENORPHINE/NALOXONE 8 MG/2 MG FILM PACKET SL SCH ×2 (05:58→17:49)
[2019-07-17] MEDS: PRENATAL VITAMINS W/ FOLIC ACID TABLET (FP) PO SCH (09:51)
[2019-07-17] MEDS: LIDOCAINE 5% TOPICAL PATCH TP SCH (09:52)
[2019-07-17] MEDS: TAMSULOSIN HCL 0.4 MG CAP PO SCH (14:25)
[2019-07-17] MEDS: ATORVASTATIN CA 20 MG TABLET (FP) PO SCH (21:20)
[2019-07-17] MEDS: METHYL SALICYLATE/MENTHOL OINT 30 GM TUBE TP SCH (21:20)
[2019-07-17] MEDS: LIDOCAINE PATCH REMOVAL MC SCH (21:20)
[2019-07-17] MEDS: THIAMINE HCL 100 MG TABLET (FP) PO SCH (21:20)
[2019-07-18] MEDS: BUPRENORPHINE/NALOXONE 8 MG/2 MG FILM PACKET SL SCH ×2 (06:11→18:16)
[2019-07-18] MEDS: PRENATAL VITAMINS W/ FOLIC ACID TABLET (FP) PO SCH (09:59)
[2019-07-18] MEDS: METHYL SALICYLATE/MENTHOL OINT 30 GM TUBE TP SCH ×2 (09:59→21:14)
[2019-07-18] MEDS: LIDOCAINE 5% TOPICAL PATCH TP SCH (09:59)
[2019-07-18] MEDS: TAMSULOSIN HCL 0.4 MG CAP PO SCH (13:55)
[2019-07-18] MEDS: ATORVASTATIN CA 20 MG TABLET (FP) PO SCH (21:14)
[2019-07-18] MEDS: LIDOCAINE PATCH REMOVAL MC SCH (21:14)
[2019-07-18] MEDS: THIAMINE HCL 100 MG TABLET (FP) PO SCH (21:14)
[2019-07-19] MEDS: BUPRENORPHINE/NALOXONE 8 MG/2 MG FILM PACKET SL SCH ×2 (06:24→17:32)
[2019-07-19] MEDS: PRENATAL VITAMINS W/ FOLIC ACID TABLET (FP) PO SCH (10:20)
[2019-07-19] MEDS: LIDOCAINE 5% TOPICAL PATCH TP SCH (10:21)
[2019-07-19] MEDS: METHYL SALICYLATE/MENTHOL OINT 30 GM TUBE TP SCH ×2 (10:21→21:35)
[2019-07-19] MEDS: TAMSULOSIN HCL 0.4 MG CAP PO SCH (12:36)
[2019-07-19] MEDS: LIDOCAINE PATCH REMOVAL MC SCH (21:35)
[2019-07-19] MEDS: THIAMINE HCL 100 MG TABLET (FP) PO SCH (21:35)
[2019-07-19] MEDS: ATORVASTATIN CA 20 MG TABLET (FP) PO SCH (21:35)
[2019-07-20] MEDS: BUPRENORPHINE/NALOXONE 8 MG/2 MG FILM PACKET SL SCH ×2 (06:09→17:54)
[2019-07-20] MEDS: METHYL SALICYLATE/MENTHOL OINT 30 GM TUBE TP SCH ×2 (09:29→21:38)
[2019-07-20] MEDS: PRENATAL VITAMINS W/ FOLIC ACID TABLET (FP) PO SCH (09:29)
[2019-07-20] MEDS: LIDOCAINE 5% TOPICAL PATCH TP SCH (09:29)
[2019-07-20] MEDS: TAMSULOSIN HCL 0.4 MG CAP PO SCH (12:22)
[2019-07-20] MEDS: LIDOCAINE PATCH REMOVAL MC SCH (21:38)
[2019-07-20] MEDS: ATORVASTATIN CA 20 MG TABLET (FP) PO SCH (21:39)
[2019-07-20] MEDS: THIAMINE HCL 100 MG TABLET (FP) PO SCH (21:39)
[2019-07-21] MEDS: BUPRENORPHINE/NALOXONE 8 MG/2 MG FILM PACKET SL SCH ×2 (06:02→17:49)
[2019-07-21] MEDS: LIDOCAINE 5% TOPICAL PATCH TP SCH (10:27)
[2019-07-21] MEDS: PRENATAL VITAMINS W/ FOLIC ACID TABLET (FP) PO SCH (10:27)
[2019-07-21] MEDS: METHYL SALICYLATE/MENTHOL OINT 30 GM TUBE TP SCH ×2 (10:27→21:28)
--- NOTE | 2019-07-21 12:22 | PN ---
[facility] Progress Note Note: Patient scheduled for discharge tomorrow. On suboxone MAT at [facility] with Dr. Wilber Kothari. Aftercare arranged for patient to return to program 2019 at 8:30am. Patient for one week of suboxone 8mg sl bid sent to [facility] pharmacy. Patient has all other prescriptions awaiting pick-up from pharmacy which were sent by Mateus Huber on 07/05/2019 from [facility] ED. Patient is medically stable at this time and denies SI/HI. Laboratory Tests 07/09/19 07/09/19 07/09/19 07:40 07:40 07:50 WBC 4.5 RBC 3.89 L Hgb 11.6 L Hct 35.3 L MCV 90.7 MCH 29.9 MCHC 32.9 RDW 16.0 H Plt Count 119 L MPV 10.6 Sodium 142 Potassium 3.5 Chloride 108 H Carbon Dioxide 29 Anion Gap 6 L BUN 13.6 Creatinine 1.0 Est GFR (CKD-EPI)AfAm 98.46 Est GFR (CKD-EPI)NonAf 84.95 Random Glucose 116 H Calcium 8.4 L Total Bilirubin 0.2 AST 14 L ALT 20 Alkaline Phosphatase 69 Total Protein 6.0 L Albumin 3.2 L Urine Color Yellow Urine Appearance Clear Urine pH 7.5 Ur Specific [place] 1.017 Urine Protein Negative Urine Glucose (UA) Negative Urine Ketones Negative Urine Blood Trace Urine Nitrite Negative Urine Bilirubin Negative Urine Urobilinogen 1.0 Ur Leukocyte Esterase Negative Urine WBC (Auto) 3 Urine RBC (Auto) 9 Urine Casts (Auto) 3 U Epithel Cells (Auto) 0.5 Urine Bacteria (Auto) 2.4 Vital Signs Temperature 98.5 F 07/21/19 06:51 Pulse Rate 67 07/21/19 06:51 Respiratory Rate 18 07/21/19 06:51 Blood Pressure 152/90 07/21/19 06:51 O2 Sat by Pulse Oximetry (%)
[2019-07-21] MEDS: TAMSULOSIN HCL 0.4 MG CAP PO SCH (13:32)
[2019-07-21] MEDS: LIDOCAINE PATCH REMOVAL MC SCH (21:28)
[2019-07-21] MEDS: ATORVASTATIN CA 20 MG TABLET (FP) PO SCH (21:28)
[2019-07-21] MEDS: THIAMINE HCL 100 MG TABLET (FP) PO SCH (21:29)
[2019-07-22] MEDS: BUPRENORPHINE/NALOXONE 8 MG/2 MG FILM PACKET SL SCH (05:32)
[2019-07-22 06:28] VITALS: BP 140/91; PULSE 71; TEMP 98.3
== END 2019-07-22 06:00 | disposition home or self-care (01) | DRG 772 ==
LOC: YASAS 15:34 → Y3W 22:23
PROVIDERS: ADMIT Neuromusculoskeletal Medicine & OMM; ATTEND Neuromusculoskeletal Medicine & OMM
PROC: HZ42ZZZ Group Counseling for Substance Abuse Treatment, Cognitive-Behavioral (ICD-10-PCS; principal; 2019-07-08)
DX: F14.20 Cocaine dependence, uncomplicated (principal); F11.20 Opioid dependence, uncomplicated; F12.20 Cannabis dependence, uncomplicated; F17.210 Nicotine dependence, cigarettes, uncomplicated; R20.0 Anesthesia of skin; M25.561 Pain in right knee; M25.562 Pain in left knee; G89.29 Other chronic pain; M17.0 Bilateral primary osteoarthritis of knee; G62.9 Polyneuropathy, unspecified; N40.0 Benign prostatic hyperplasia without lower urinary tract symptoms; R00.1 Bradycardia, unspecified; I44.2 Atrioventricular block, complete; R26.2 Difficulty in walking, not elsewhere classified; Z99.89 Dependence on other enabling machines and devices
CPT/HCPCS: 36415; 80053; 81003; 85027